=== PATIENT | female | born 1965 | race Caucasian/White ===

== ENCOUNTER → 2018-05-17 | Outpatient (CLI) | payer OTHER ==
[~2018-05-17] MED LIST: DOCU-202 PO; HYDR-3250 PO; HYDR2TAB4 PO; LEVO50TA86 PO; NAPR-1043 PO
--- NOTE | 2018-05-17 13:48 | RADIOLOGY IMAGING REPORT ---
FAC[facility]: [facility] PATIENT NAME: REJI LOVE : [id number] MR: [id number] V: [id number] EXAM DATE: ORDERING PHYSICIAN: NORM FIGUEROA TECHNOLOGIST: Mandy Gil PROCEDURE:BILATERAL DIGITAL SCREENING MAMMOGRAM WITH CAD ASSISTED INTERPRETATION & 3D TOMOSYNTHESIS COMPARISON:Prior mammograms dated 05/04/17, 04/25/16, 04/20/15, 02/19/14, 01/29/14 INDICATIONS:SCREENING FINDINGS: A small to moderate amount of fibroglandular tissue is seen throughout the breasts. The parenchymal pattern has remained stable allowing for difference in mammographic technique & patient positioning. The small grouping of round calcifications in the 12 o'clock position Left breast have remained stable. There is no evidence of malignant appearing mass, malignant appearing calcification or other secondary sign of malignancy in either breast. DIAGNOSTIC CATEGORY 2--BENIGN FINDING. RECOMMENDATIONS: ROUTINE MAMMOGRAM AND CLINICAL EVALUATION. IMPRESSION: BIRADS 2: Benign finding. No significant abnormality is seen. Dictated by: Coby Bradley M.D. on 05/17/2018 at 8:52 Transcribed by: TRISTAN on 05/17/2018 at 13:21 Approved by: Coby Bradley M.D. on 05/17/2018 at 13:47 [facility]
== END ==
LOC: MAMO 04:08
PROVIDERS: ATTEND Nurse Practitioner Family
DX: Z12.31 Encounter for screening mammogram for malignant neoplasm of breast (principal); R92.1 Mammographic calcification found on diagnostic imaging of breast
CPT/HCPCS: 77063; 77067